=== PATIENT | female | born 1955 | race Caucasian/White ===

== ENCOUNTER → 2017-01-11 | Outpatient (CLI) | payer BC, OTHER ==
--- NOTE | 2017-01-11 19:43 | PCVCIMAG ---
APPROVED REPORT Exam: Stress Echocardiogram Indication: CAD, COPD, DM, DYSPNEA Stress Nurse: Akosua Gould HR: 82 bpm Rhythm: NSR Procedure The patient underwent an Exercise Stress Test using the Marco Antonio Protocol. Blood pressure, heart rate, and EKG were monitored. An Echocardiogram was performed by dental service technician in four stages in quad fashion. At peak stress, four selected images were obtained and placed side by side with resting images for comparison. Testing Details Test: Exercise stress testing was performed using a Marco Antonio protocol. HR Resting HR: 82 bpmMax Heart Rate (APMHR): 158 bpm Max HR Achieved: 157 bpmTarget HR (85% APMHR): 134 bpm % of APMHR: 99 HR response to stress: Normal HR response to stress BP Resting BP: 146/74 mmHg Max BP: 198/80 mmHg ECG Resting ECG: Sinus Rhythm Stress ECG: Sinus Rhythm ST Change: Upsloping ST depression- Non-Diagnostic ST changes Maximum ST Deviation: 2.8 mm Arrhythmia: None Clinical Reason for Termination: Maximal effort Stress Symptoms: None Exercise duration: 7:21 min Exercise capacity: 10.1 METs Overall Exercise Capacity for Age: Normal Pre-Stress Echo The resting Echocardiogram showed normal left ventricular contractility with an estimated Ejection Fraction of about >55%. Normal wall motion in all segments on baseline images.The resting echocardiogram demonstrates normal wall motion. Post-Stress Echo The stress Echocardiogram showed normal left ventricular contractility with an estimated Ejection Fraction of about 65-70%. Normal augmentation of wall motion in all segments on post stress images. Clinical No clinical or ECG evidence for ischemia. Conclusion Clinical Response: Non-ischemic Exercise Capacity: Average Stress ECG Response: Non-ischemic Stress Echo Images: Non-ischemic The left ventricle is normal in size and wall thickness in both the rest and stress images. No prior study available for comparison. <Conclusion> The left ventricle is normal in size and wall thickness in both the rest and stress images.
--- NOTE | 2017-01-12 17:48 | PCVCIMAG ---
EXAM: BILATERAL CAROTID DUPLEX INDICATION: Carotid Occlusive Disease. FINDINGS: Doppler Measurements (centimeters per second): RIGHT: Peak CCA-73, Peak ECA-79, Diastolic ICA-64, Peak ICA-187, ICA/CCA Ratio-2.6. LEFT: Peak CCA-100, Peak ECA-190, Diastolic ICA-36, Peak ICA-96, ICA/CCA Ratio-1.0. RIGHT CAROTID: The carotid bulb has mild plaque. The proximal internal carotid artery shows 60-70% stenosis. The common carotid artery shows no significant stenosis. The external carotid artery shows no significant stenosis. LEFT CAROTID: The carotid bulb has mild plaque. The proximal internal carotid artery shows <40% stenosis. The common carotid artery shows no significant stenosis. The external carotid artery shows greater than 50% stenosis. Antegrade flow in both vertebral arteries. IMPRESSION: 60-70% stenosis of the right internal carotid artery with mild plaque. <40% stenosis of the left internal carotid artery with mild plaque. LOC:[place] [id number]
== END | disposition home or self-care (01) ==
LOC: PCVCIMAG 09:55
PROVIDERS: ATTEND Internal Medicine Cardiovascular Disease
DX: I65.23 Occlusion and stenosis of bilateral carotid arteries (principal); I10 Essential (primary) hypertension; E78.00 Pure hypercholesterolemia, unspecified; E11.9 Type 2 diabetes mellitus without complications
CPT/HCPCS: 93325; 93351; 93880

== ENCOUNTER → 2017-10-10 | Outpatient (CLI) | payer BC, OTHER | END | disposition home or self-care (01) | LOC: PCVCIMAG 09:55 | DX: I65.23 Occlusion and stenosis of bilateral carotid arteries (principal); E78.00 Pure hypercholesterolemia, unspecified; R93.1 Abnormal findings on diagnostic imaging of heart and coronary circulation; I10 Essential (primary) hypertension; E11.9 Type 2 diabetes mellitus without complications; Z82.49 Family history of ischemic heart disease and other diseases of the circulatory system; Z87.891 Personal history of nicotine dependence; Z79.899 Other long term (current) drug therapy | CPT/HCPCS: 80061; 93005; 93880 ==

== ENCOUNTER → 2018-10-09 | Outpatient (CLI) | payer BC, OTHER ==
--- NOTE | 2018-10-09 09:36 | PCVCIMAG ---
EXAM: BILATERAL CAROTID DUPLEX INDICATION: Carotid Occlusive Disease. FINDINGS: Doppler Measurements (centimeters per second): RIGHT: Peak CCA-66, Peak ECA-87, Diastolic ICA-63, Peak ICA-175, ICA/CCA Ratio-2.6. LEFT: Peak CCA-84, Peak ECA-103, Diastolic ICA-30, Peak ICA-91, ICA/CCA Ratio-1.2. RIGHT CAROTID: The carotid bulb has moderate plaque. The proximal internal carotid artery shows 60-70% stenosis. The common carotid artery shows no significant stenosis. The external carotid artery shows no significant stenosis. LEFT CAROTID: The carotid bulb has mild plaque. The proximal internal carotid artery shows <40% stenosis. The common carotid artery shows no significant stenosis. The external carotid artery shows no significant stenosis. Antegrade flow in both vertebral arteries. IMPRESSION: 60-70% stenosis of the right internal carotid artery with moderate plaque. <40% stenosis of the left internal carotid artery with mild plaque. No change since October 2017 study. LOC:[id number]
== END | disposition home or self-care (01) ==
LOC: PCVCIMAG 08:53
PROVIDERS: ATTEND Internal Medicine Cardiovascular Disease
DX: I65.23 Occlusion and stenosis of bilateral carotid arteries (principal); R09.89 Other specified symptoms and signs involving the circulatory and respiratory systems; E78.5 Hyperlipidemia, unspecified; Z87.891 Personal history of nicotine dependence
CPT/HCPCS: 93880

== ENCOUNTER → 2018-11-21 | Outpatient (CLI) | payer BC, OTHER ==
--- NOTE | 2018-11-22 14:50 | PCVCIMAG ---
APPROVED REPORT Study performed: 11/21/2018 15:12:44 Exam: Stress Echocardiogram Indication: dyspnea on exertion, carotid stenosis, htn, dm Patient Location: Echo lab Stress Nurse: Massiel Fajardo RN Status: routine Ht: 5 ft 1 in HR: 82 bpm BP: 126/76 mmHg Rhythm: NSR Procedure The patient underwent an Exercise Stress Test using the Marco Antonio Protocol. Blood pressure, heart rate, and EKG were monitored. An Echocardiogram was performed by artificial insemination technician in four stages in quad fashion. At peak stress, four selected images were obtained and placed side by side with resting images for comparison. Stress Test Details Stress Test: Exercise stress testing was performed using a Marco Antonio protocol. HR Resting HR: 82 bpmMax Heart Rate (APMHR): 156 bpm Max HR Achieved: 148 bpmTarget HR (85% APMHR): 132 bpm % of APMHR: 94 Recovery HR: 95 bpm HR response to stress: Normal HR response to stress BP Resting BP: 126/76 mmHg Max BP: 200/64 mmHg Recovery BP: 142/66 mmHg BP response to stress: Normal blood pressure response to stress. ECG Resting ECG: Sinus Rhythm Stress ECG: Sinus Rhythm ST Change: Normal Arrhythmia: None Recovery ECG: Sinus Rhythm Recovery ST Change: Normal Recovery Arrhythmia: None Clinical Reason for Termination: Maximal effort, Dyspnea Stress Symptoms: Dyspnea Exercise duration: 7 min 45 sec Highest Stage Achieved: Stage 3: 3.4 mph at 14% grade. Exercise capacity: 10.4 METs Overall Exercise Capacity for Age: Average Angina Score: None Pre-Stress Echo The resting Echocardiogram showed normal left ventricular contractility with an estimated Ejection Fraction of about >55%. Normal wall motion in all segments on baseline images. Post-Stress Echo The stress Echocardiogram showed normal left ventricular contractility with an estimated Ejection Fraction of about 65%. Normal augmentation of wall motion in all segments on post stress images. Clinical No clinical or ECG evidence for ischemia. Conclusion Clinical Response: Non-ischemic Exercise Capacity: Average Stress ECG Response: Non-ischemic Stress Echo Images: Non-ischemic The left ventricle is normal in size and wall thickness in both the rest and stress images. Other Information Study Quality: Adequate <Conclusion> The left ventricle is normal in size and wall thickness in both the rest and stress images.
== END | disposition home or self-care (01) ==
LOC: PCVCIMAG 15:09
PROVIDERS: ATTEND Internal Medicine Cardiovascular Disease
DX: R06.09 Other forms of dyspnea (principal); I10 Essential (primary) hypertension; E11.9 Type 2 diabetes mellitus without complications; I65.29 Occlusion and stenosis of unspecified carotid artery
CPT/HCPCS: 93325; 93351